=== PATIENT | female | born 1955 | race Caucasian/White ===

== ENCOUNTER 2016-11-16 18:19 | Emergency (ER) | payer SELFPAY ==
[~2016-11-16] VITALS: Ht 160 cm; Wt 81.1 kg
[2016-11-16] MEDS ORDERED: ASPIRIN 81 MG TABLET CHEW PO ONE (19:00)
[2016-11-16] MEDS ORDERED: SODIUM CHLORIDE 0.9% 1,000ML IVBOLUS ONE (19:00)
[2016-11-16] MEDS ORDERED: PLEASE ENTER ALLERGIES MC SCH ×2 (19:30)
[2016-11-16] MEDS ORDERED: ATOR80TA75 PO (19:33)
[2016-11-16] MEDS ORDERED: OLME40TA PO (19:33)
[2016-11-16] MEDS ORDERED: METF10002 PO (19:33)
[2016-11-16] MEDS ORDERED: AMLO5TAB2 PO (19:33)
[2016-11-16] MEDS ORDERED: ASPIRIN 81 MG TABLET CHEW ONE (19:41)
[2016-11-16] MEDS ORDERED: FAMOTIDINE 20 MG/2 ML IVPush ONE (20:00)
[2016-11-16] MEDS ORDERED: PROCHLORPERAZINE 5 MG/ML, 2ML IVPush ONE (20:00)
[2016-11-16] MEDS ORDERED: KETOROLAC 30 MG/1 ML IVPush ONE (20:00)
[2016-11-16] MEDS ORDERED: PROCHLORPERAZINE 5 MG/ML, 2ML ONE (20:59)
[2016-11-16] MEDS ORDERED: KETOROLAC 30 MG/1 ML ONE (20:59)
[2016-11-16] MEDS ORDERED: FAMOTIDINE 20 MG/2 ML ONE (21:00)
[2016-11-16 21:07] VITALS: BP 117/63
[2016-11-16 21:08] LABS: HEMOGLOBIN 14.5 g/dL (11.7-16.4)
[2016-11-16 21:21] LABS: ASPARTATE AMINO TRANSFERASE 31 U/L (15-37); BLOOD UREA NITROGEN 18 mg/dL (7-18)
[2016-11-16 21:26] LABS: IS PT STATUS REG ER OR PRE ER? YES
== END 2016-11-16 22:10 | disposition home or self-care (01) ==
LOC: ED 22:04
DX: R06.00 Dyspnea, unspecified (principal); R07.89 Other chest pain; G44.219 Episodic tension-type headache, not intractable; I10 Essential (primary) hypertension; E11.9 Type 2 diabetes mellitus without complications
CPT/HCPCS: 36415; 71010; 80053; 83690; 84484; 85025; 93005; 96374; 96375; 99285; J0780; J1885; J7030; S0028